=== PATIENT | female | born 1965 | race Caucasian/White ===

== ENCOUNTER → 2017-10-03 | Outpatient (REF) ==
[~2017-10-03] MED LIST: CARAFATE 1GM1 G PO; COLACE 100100 MG/CAP PO; CYMBALTA 60MG60 MG PO; D3-5050000 IU PO; FLEXERIL5 MG PO; HAIR SKIN PO; MULTI-VITAMIN W1 TA1 PO; OXY IR5 MG PO; OXYCONTIN 20MG20 MG PO; PRIL40 PO; REGLAN 10MG10 MG/TAB PO; SYNTHROID0.075 MG/T PO; TOPROL XL 25MG25 MG PO; ZYLOPRIM 300MG300 MG PO; [UNRECOGNIZED DRUG - OTHER] PO
[2017-10-03 11:49] LABS: THYROID STIMULATING HORMONE 1.97 uIU/mL (0.465-4.680)
== END ==
LOC: ZLAB.WCH 11:00
PROVIDERS: Internal Medicine
DX: Z01.89 Encounter for other specified special examinations (principal)

== ENCOUNTER → 2018-07-29 | Outpatient (REF) ==
[2018-07-29 19:03] LABS: HIV 1/2 Antibodies Non-Reactive; HIV-1p24 Antigen Non-Reactive
== END ==
LOC: ZLAB.WCH 18:13
PROVIDERS: Family Medicine
DX: Z01.89 Encounter for other specified special examinations (principal)

== ENCOUNTER → 2018-08-04 | Outpatient (REF) ==
[2018-08-04 19:18] LABS: THYROID STIMULATING HORMONE 1.63 uIU/mL (0.465-4.680)
== END ==
LOC: ZLAB.WCH 18:28
PROVIDERS: Internal Medicine
DX: Z01.89 Encounter for other specified special examinations (principal)

== ENCOUNTER 2019-03-31 22:07 | Emergency (ER) | payer MEDICARE ==
[~2019-03-31] VITALS: Ht 167.6 cm; Wt 113.6 kg
[2019-03-31 22:12] VITALS: BP 177/79; TEMP 98.9
[2019-03-31] MEDS ORDERED: COREG 25MG25 MG/TAB PO (22:30)
[2019-03-31] MEDS ORDERED: VALTREX 50500 MG/TAB PO (22:31)
[2019-04-01] MEDS ORDERED: CRUTCHES MC (00:35)
[2019-04-01 00:40] VITALS: PULSE 66
== END 2019-04-01 00:40 | disposition home or self-care (01) ==
LOC: COL.ER 22:07
DX: S92.251A Displaced fracture of navicular [scaphoid] of right foot, initial encounter for closed fracture (principal); S60.212A Contusion of left wrist, initial encounter; S60.222A Contusion of left hand, initial encounter; S80.01XA Contusion of right knee, initial encounter; G47.33 Obstructive sleep apnea (adult) (pediatric); M79.7 Fibromyalgia; I10 Essential (primary) hypertension; E03.9 Hypothyroidism, unspecified; M10.9 Gout, unspecified; W01.0XXA Fall on same level from slipping, tripping and stumbling without subsequent striking against object, initial encounter; Y92.000 Kitchen of unspecified non-institutional (private) residence as the place of occurrence of the external cause
CPT/HCPCS: J2270; Q4045